=== PATIENT | female | born 2005 | race Caucasian/White ===

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

== ENCOUNTER → 2024-06-21 | Outpatient (CLI) | payer OTHER ==
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
== END | disposition home or self-care (01) ==
LOC: RADXRMAIN 13:15
PROVIDERS: ATTEND Emergency Medicine
DX: S20.211A Contusion of right front wall of thorax, initial encounter (principal)
CPT/HCPCS: 71046

== ENCOUNTER 2024-06-22 08:53 | Emergency (ER) | payer OTHER ==
[2024-06-22] MEDS: ACETAMINOPHEN TAB 325 MG TAB PO STA (09:22)
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
[2024-06-22 10:22] VITALS: BP 121/86; PULSE 90; RESP 18; TEMP 98
== END 2024-06-22 10:21 | disposition home or self-care (01) ==
LOC: EC 08:53
DX: S20.211A Contusion of right front wall of thorax, initial encounter (principal); W20.8XXA Other cause of strike by thrown, projected or falling object, initial encounter; Y99.0 Civilian activity done for income or pay
CPT/HCPCS: 99283

== ENCOUNTER 2024-06-23 16:29 | Emergency (ER) | payer OTHER ==
[2024-06-23 16:45] VITALS: RESP 18; TEMP 97.7
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
[2024-06-23] MEDS: LIDOCAINE 4% PATCH TOPICAL ONE (17:16)
[2024-06-23] MEDS: MORPHINE SULFATE 4 MG/ML SYRINGE IVP STA (17:16)
[2024-06-23] MEDS: KETOROLAC 15 MG/ML 1 ML VIAL IVP STA (17:16)
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
[2024-06-23] MEDS ORDERED: MORPHINE SULFATE 4 MG/ML SYRINGE IVP STA (20:43)
[2024-06-23] MEDS ORDERED: ACET/COD 300 MG/30 MG STARTER PACK 6 TAB BTL PO STA (20:43)
[2024-06-23] MEDS ORDERED: KETOROLAC 15 MG/ML 1 ML VIAL IVP STA (20:43)
[2024-06-23 21:09] VITALS: BP 124/80; PULSE 84
== END 2024-06-23 21:14 | disposition home or self-care (01) ==
LOC: EC 16:29
DX: S20.211A Contusion of right front wall of thorax, initial encounter (principal); X58.XXXA Exposure to other specified factors, initial encounter
CPT/HCPCS: 71260; 74160; 99284; 96374; 96375; J2270; J1885; Q9967